=== PATIENT | male | born 2000 | race Caucasian/White ===

== ENCOUNTER 2021-08-20 21:51 | Emergency (ER) | payer SELFPAY ==
[~2021-08-20] VITALS: Ht 188 cm; Wt 81.2 kg
[2021-08-20 22:26] LABS: HEMOGLOBIN 15.6 gm/dl (14.0-17.5); RED BLOOD COUNT 5.11 M/UL (4.20-5.50); WHITE BLOOD COUNT 10.2 K/UL (4.5-11.0)
[2021-08-20 23:08] LABS: BUN/CREATININE RATIO 15 (0-10)
== END 2021-08-21 06:14 | disposition home or self-care (01) ==
LOC: ER1 21:51
PROVIDERS: Family Medicine
DX: F10.129 Alcohol abuse with intoxication, unspecified (principal); F17.290 Nicotine dependence, other tobacco product, uncomplicated; Y90.7 Blood alcohol level of 200-239 mg/100 ml
CPT/HCPCS: 70450; 80053; 80307; 85025; 96374; 96376; 99284; G0480; J3411; J3475; J7030

== ENCOUNTER 2021-10-31 20:28 | Emergency (ER) | payer SELFPAY | END 2021-11-01 01:05 | disposition home or self-care (01) | LOC: ER1 20:28 | DX: S43.015A Anterior dislocation of left humerus, initial encounter (principal); S43.035A Inferior dislocation of left humerus, initial encounter; F17.290 Nicotine dependence, other tobacco product, uncomplicated; Z88.1 Allergy status to other antibiotic agents; W11.XXXA Fall on and from ladder, initial encounter; Y92.89 Other specified places as the place of occurrence of the external cause; Y99.0 Civilian activity done for income or pay | CPT/HCPCS: 23650; 71045; 73030; 73060; 94760; 96374; 96375; 99152; 99283; J1885; J2270; J2405; J2704 ==